=== PATIENT | male | born 1975 | race Caucasian/White ===

== ENCOUNTER 2017-09-23 19:34 | Emergency (ER) | payer OTHER ==
[~2017-09-23] VITALS: Ht 175.3 cm; Wt 99.8 kg
[~2017-09-23 19:34] MED LIST: AZIT250T6 PO
[2017-09-23 19:35] VITALS: BP 123/77
--- NOTE | 2017-09-23 19:59 | PHYS DOC ---
Past History Past Medical History: Anxiety Past Surgical History: No Surgical History Alcohol Use: Heavy Drug Use: None Adult General Chief Complaint Chief Complaint: FOREIGN BODY HPI HPI Patient is a 42 year old M who presents with swollen uvula. Patient states he can feel his uvula touching the back of his tongue when he swallows and it bothers him. Patient denies any pain with swallowing. Patient states he's been sick for the past 3 weeks with URI symptoms and sinus congestion and drainage. Patient states he was seen as PCPs office yesterday however was not seen by a physician since they were all gone and the nurses supposedly swabbed him for what he thinks was strep which was negative. Patient denies any fevers. Patient denies any chest pain returns of breath. Patient is no other complaints. Review of Systems Review of Systems GEN: Denies fevers, chills, sweats HEENT: Swollen uvula CV: Denies chest pain RESP: Denies shortness of air, cough GI: Denies n/v/d NEURO: Denies confusion, dizziness MSK: Denies weakness, joint pain/swelling All other systems were reviewed and found to be within normal limits, except as documented in this note. Allergies Allergies Allergies Coded Allergies Type Severity Reaction Last Updated Verified No Known Drug Allergies 06/13/16 No Physical Exam Physical Exam GEN.: No apparent distress. Alert and oriented. HEENT: Head is normocephalic, atraumatic, uvula erythematous minimally swollen, posterior pharynx erythema no tonsillar swelling, TMs clear bilaterally NECK: Supple, no cervical lymphadenopathy, no meningeal signs LUNGS: CTAB. HEART: RRR, S1, S2 present. Peripheral pulses intact ABDOMEN: Soft, nontender. Positive bowel sounds. EXTREMITIES: Without any cyanosis. NEUROLOGIC: Normal speech, normal tone PSYCHIATRIC: Normal affect, normal mood. SKIN: No ulcerations Current Patient Data Lab Results Rapid strep positive EKG EKG [] Radiology/Procedures Radiology/Procedures [] Course & Med Decision Making Course & Med Decision Making Pertinent Labs and Imaging studies reviewed. (See chart for details) ED course: Patient was seen and examined emergency room a rapid strep, rapid influenza swabs are taken Was positive for rapid strep Informed patient of strep results and plan to discharge home with antibiotics. Patient states a couple weeks ago he was on a Z-Miguel for URI symptoms therefore will some amoxicillin. Recommended short-term follow-up as PCP. MDM: After reviewing the chart, CC/HPI/PMH, physical exam, [lab results], I do not believe the patient has a severe bacterial infection warranting further workup and/or admission at this time. Patient has strep throat that we treated with oral antibiotics as an outpatient with short-term follow-up with PCP. Patient is stable for discharge. Additional verbal discharge instructions were provided to the patient and that if symptoms get worse or any new symptoms arise that are worrisome to the patient he is to return to the emergency room immediately [] Dragon Disclaimer Dragon Disclaimer This electronic medical record was generated, in whole or in part, using a voice recognition dictation system. Departure Departure: Impression: Primary Impression: Strep pharyngitis Disposition: 01 HOME, SELF-CARE Condition: IMPROVED Referrals: PCP,CRISELDA (PCP) Patient Instructions: Strep Throat Additional Instructions: Please follow-up with your family doctor the next one to 2 days and return if symptoms increase. Scripts Amoxicillin (AMOXICILLIN) 875 Mg Tablet 1 TAB PO BID, #14 TAB Prov: DAVID DRAPER DO 09/23/17 DAVID DRAPER DO Sep 23, 2017 19:59
[2017-09-23] MEDS ORDERED: DEXAMETHASONE SOD PHOS 10 MG/ML VIAL IM ONE (20:30)
[2017-09-23] MEDS ORDERED: AMOX875T PO (20:38)
[2017-09-23 20:41] LABS: INFLUENZA A PATIENT NEGATIVE (NEGATIVE); INFLUENZA B PATIENT NEGATIVE (NEGATIVE)
== END 2017-09-23 20:40 | disposition home or self-care (01) ==
LOC: ER 19:34
DX: J02.0 Streptococcal pharyngitis (principal); F10.20 Alcohol dependence, uncomplicated; F41.9 Anxiety disorder, unspecified
CPT/HCPCS: 87804; 87880; 96372; 99284; J1100

== ENCOUNTER 2018-05-02 16:17 | Emergency (ER) | payer OTHER ==
[~2018-05-02 16:17] MED LIST changes: +AMOX875T PO
[2018-05-02 16:30] VITALS: BP 116/77
--- NOTE | 2018-05-02 16:50 | PHYS DOC ---
Past History Past Medical History: Anxiety, Hypertension Past Surgical History: No Surgical History Alcohol Use: Occasionally Drug Use: None Adult General Chief Complaint Chief Complaint: DENTAL PROBLEM HPI HPI 6-year-old male presents with left lower quadrant tooth pain. The patient has known wisdom teeth that are impacted, growing in sideways. He has fillings that have fallen out and believes cavities are expanding in the same area. He is anxious about going to the dentist and have everything fixed. 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 The pain was significant enough today that he had to leave work. Patient denies fever or chills. He is concern for infection as his gums are sensitive and feel like they are somewhat swollen. He has no other complaints. Review of Systems Review of Systems Constitutional: Denies fever or chills [] Eyes: Denies change in visual acuity, redness, or eye pain [] HENT: Denies nasal congestion or sore throat. Toothache [] Respiratory: Denies cough or shortness of breath [] Cardiovascular: No additional information not addressed in HPI [] GI: Denies abdominal pain, nausea, vomiting, bloody stools or diarrhea [] : Denies dysuria or hematuria [] Musculoskeletal: Denies back pain or joint pain [] Integument: Denies rash or skin lesions [] Neurologic: Denies headache, focal weakness or sensory changes [] Endocrine: Denies polyuria or polydipsia [] All other systems were reviewed and found to be within normal limits, except as documented in this note. Allergies Allergies Allergies Coded Allergies Type Severity Reaction Last Updated Verified No Known Drug Allergies 06/13/16 No Physical Exam Physical Exam Constitutional: Well developed, well nourished, no acute distress, non-toxic appearance. [] HENT: Normocephalic, atraumatic, bilateral external ears normal, oropharynx moist, no oral exudates, nose normal. Wasn't tooth in the left lower quadrant growing and sideways. Molar next to it with cavities. Some erythema of the surrounding gum tissue.[] Eyes: PERRLA, EOMI, conjunctiva normal, no discharge. [] Neck: Normal range of motion, no tenderness, supple, no stridor. [] Cardiovascular:Heart rate regular rhythm, no murmur [] Lungs & Thorax: Bilateral breath sounds clear to auscultation [] Abdomen: Bowel sounds normal, soft, no tenderness, no masses, no pulsatile masses. [] Skin: Warm, dry, no erythema, no rash. [] Back: No tenderness, no CVA tenderness. [] Extremities: No tenderness, no cyanosis, no clubbing, ROM intact, no edema. [] Neurologic: Alert and oriented X 3, normal motor function, normal sensory function, no focal deficits noted. [] Psychologic: Affect normal, judgement normal, mood normal. [] Current Patient Data Vital Signs Vital Signs Date Time Temp Pulse Resp B/P (MAP) Pulse Ox O2 Delivery O2 Flow Rate FiO2 05/02/18 16:30 97.9 82 18 100 Room Air EKG EKG [] Radiology/Procedures Radiology/Procedures [] Course & Med Decision Making Course & Med Decision Making Pertinent Labs and Imaging studies reviewed. (See chart for details) The patient is concerned about taking too strong with pain medication because he cannot be drowsy at work. He has taken Percocet in the past for broken arm and this made him very drowsy. He does not member the dosage. I will discharge him with Augmentin for possible infection as well as naproxen 500 and [place] 5/ 325. The patient will try 1/2-1 tab of [place] at home to see how it makes him feel. He is stable for discharge at this time. [] Dragon Disclaimer Dragon Disclaimer This electronic medical record was generated, in whole or in part, using a voice recognition dictation system. Departure Departure: Referrals: SERA GLEZ MD (PCP) KRISTIE ARAUJO DO May 02, 2018 16:50
[2018-05-02] MEDS ORDERED: HYDR-971 PO (16:53)
[2018-05-02] MEDS ORDERED: AMOX1TAB61 PO (16:53)
[2018-05-02] MEDS ORDERED: NAPR-514 PO (16:53)
== END 2018-05-02 17:23 | disposition home or self-care (01) ==
LOC: ER 16:17
DX: K02.9 Dental caries, unspecified (principal); I10 Essential (primary) hypertension
CPT/HCPCS: 99283

== ENCOUNTER → 2018-10-25 | Outpatient (CLI) | payer OTHER ==
[~2018-10-25] MED LIST changes: +AMOX1TAB61 PO; +HYDR-3165 PO; +NAPR-514 PO
== END | disposition home or self-care (01) ==
LOC: PMG 18:20
PROVIDERS: ATTEND Registered Nurse
DX: M79.675 Pain in left toe(s) (principal)
CPT/HCPCS: 36415; 84550

== ENCOUNTER 2019-01-26 17:43 | Emergency (ER) | payer OTHER ==
[~2019-01-26] VITALS: Ht 175.3 cm; Wt 102.1 kg
[2019-01-26] MEDS ORDERED: ORPH-16 PO (18:52)
[2019-01-26] MEDS ORDERED: PRED20TA PO (18:52)
--- NOTE | 2019-01-26 18:52 | PHYS DOC ---
Past History Past Medical History: Anxiety, Hypertension Past Surgical History: No Surgical History Alcohol Use: Heavy Drug Use: None Adult General Chief Complaint Chief Complaint: HIP PAIN HPI HPI Patient is a 43 year old male who presents with low back pain that radiated down his left leg at approximately 2 PM today. He states the pain began suddenly around 11 AM this morning while he was at a job interview and sitting on a hard chair. He states the pain is a dull ache with intermittent sharp pains down his leg. The pain is currently a 5 out of 10 in severity. He took one Naproxen at 2 PM that has provided mild relief. He admits recently beginning a new exercise program which he believes has led to his increased back pain. The pain is worse with any twisting movement. He denies any incontinence, urinary retention, hematuria, or decreased sensation in his lower extremities. Review of Systems Review of Systems Constitutional: Denies fever or chills [] Eyes: Denies change in visual acuity, redness, or eye pain [] Respiratory: Denies cough or shortness of breath [] Cardiovascular: Denies chest pain or palpitations. GI: Denies abdominal pain, nausea, vomiting, or diarrhea [] : Denies dysuria or hematuria [] Musculoskeletal: Reports lower back pain. Neurologic: Denies headache, focal weakness or sensory changes [] Complete systems were reviewed and found to be within normal limits, except as documented in this note. Current Medications Current Medications Current Medications Medications (Trade) Dose Ordered Sig/Dinh Start Time Stop Time Status Last Admin Dose Admin Dexamethasone (Decadron) 10 mg 1X ONCE 01/26/19 19:00 01/26/19 19:01 Allergies Allergies Allergies Coded Allergies Type Severity Reaction Last Updated Verified No Known Drug Allergies 06/13/16 No Physical Exam Physical Exam Constitutional: Well developed, well nourished, no acute distress, non-toxic appearance. [] Eyes: EOMI, conjunctiva normal, no discharge. [] Cardiovascular:Heart rate regular rhythm, no murmur [] Lungs & Thorax: Bilateral breath sounds clear to auscultation [] Skin: Warm, dry, no erythema, no rash. [] Back: Tenderness to palpation over left SI joint and quadratus lumborum, no midline thoracic or lumbar tenderness noted, no CVA tenderness. [] Extremities: No tenderness, no cyanosis, no clubbing, ROM intact, no edema. [] Neurologic: Alert and oriented X 3, normal motor function, normal sensory function, no focal deficits noted. [] Psychologic: Affect normal, judgement normal, mood normal. [] Current Patient Data Vital Signs Vital Signs Date Time Temp Pulse Resp B/P (MAP) Pulse Ox O2 Delivery O2 Flow Rate FiO2 01/26/19 18:02 98.0 91 18 95 Room Air EKG EKG [] Radiology/Procedures Radiology/Procedures [] Course & Med Decision Making Course & Med Decision Making Mr. Rutledge is a 43-year-old male who presented with left lower back pain that began this morning and has radiated down his left leg one time. He denies any trauma or injuries to the area. Denies loss of bowel/bladder. Denies fever. Denies dysuria or hematuria. No midline spinal tenderness noted. Patient was provided steroids to decrease inflammation, Stretching/Rehab exercises, and provided contact information for follow up with Dr. Thompson. Patient was given a prescription for Norflex as well. Patient stable for discharge with outpatient follow-up with PCP. Discussed findings and plan with patient and family, who acknowledge understanding and agreement. Dragon Disclaimer Dragon Disclaimer This electronic medical record was generated, in whole or in part, using a voice recognition dictation system. Departure Departure: Impression: Primary Impression: Lumbar back pain Additional Impression: Sciatica Disposition: 01 HOME, SELF-CARE Condition: STABLE Referrals: SERA GLEZ MD (PCP) Patient Instructions: Back Pain, Adult, [id number], Sciatica with Rehab-Sp ortsMed Scripts Orphenadrine Citrate (ORPHENADRINE CITRATE) 100 Mg Tablet.er 1 TAB PO BID PRN for MUSCLE PAIN, #14 TAB 0 Refills Prov: HETAL COX DO 01/26/19 Prednisone (PREDNISONE) 20 Mg Tablet 2 TAB PO DAILY for Back pain, #8 TAB Prov: HETAL COX DO 01/26/19 Problem Qualifiers Additional Impression: Sciatica Laterality: left Qualified Codes: M54.32 - Sciatica, left side HETAL COX DO Jan 26, 2019 18:52
[2019-01-26] MEDS ORDERED: DEXAMETHASONE 4 MG TABLET PO ONE (19:00)
[2019-01-26 19:06] VITALS: BP 143/65
== END 2019-01-26 19:06 | disposition home or self-care (01) ==
LOC: ER 17:43
DX: M54.42 Lumbago with sciatica, left side (principal); F41.9 Anxiety disorder, unspecified; I10 Essential (primary) hypertension; F10.20 Alcohol dependence, uncomplicated; Y90.9 Presence of alcohol in blood, level not specified
CPT/HCPCS: 99283; J8540

== ENCOUNTER → 2019-02-14 | Outpatient (CLI) | payer OTHER ==
[2019-01-26 19:06] VITALS: BP 143/65
[~2019-02-14] MED LIST changes: +ORPH-16 PO; +PRED20TA PO
--- NOTE | 2019-02-14 16:29 | RAD ---
Examination: CT of the abdomen pelvis without contrast HISTORY: History of left flank pain, left lower quadrant pain COMPARISON: None available TECHNIQUE: Axial CT images of the abdomen pelvis were performed without contrast. Coronal and sagittal reformats are performed Exposure: One or more of the following individualized dose reduction techniques were utilized for this examination: 1. Automated exposure control 2. Adjustment of the mA and/or kV according to patient size 3. Use of iterative reconstruction technique FINDINGS: The bibasilar lungs are clear. No evidence of free air identified in the abdomen. The evaluation of the solid organs is limited due to lack of IV contrast. The evaluation of bowel is limited due to lack of oral contrast. There is diffuse decreased attenuation noted in the liver likely hepatic steatosis. There is ill-defined density identified in the left lobe of the liver probably focal fatty sparing. The visualized spleen, adrenals grossly appears unremarkable. Gallbladder is mildly distended. The stomach is mildly distended. The visualized pancreas grossly appears unremarkable. The small bowel is nondilated. Feces and gas noted in the colon. The appendix is normal. There is mild thickened appearance of the urinary bladder wall. Mild prominent bilateral extrarenal pelvis. No evidence of intrarenal collecting system calculi identified. Faint minimal fat stranding identified about the left ureter. No evidence of lytic bony destructive lesion. IMPRESSION: 1. Mild thickened appearance of the wall of the urinary bladder. Underlying mucosal pathology such as neoplasm is not completely excluded. Cystoscopic evaluation can be considered. 2. Minimal faint fat stranding identified about the distal left ureter, nonspecific underlying mild pyelitis is not excluded. Correlate with urine analysis. 3. Hepatic steatosis.There is ill-defined density identified in the left lobe of the liver probably focal fatty sparing. Electronically signed by: Igor Peguero MD (02/14/2019 4:26 PM) [facility]
== END | disposition home or self-care (01) ==
LOC: CT 15:48
PROVIDERS: ATTEND Family Medicine
DX: K76.0 Fatty (change of) liver, not elsewhere classified (principal); K82.8 Other specified diseases of gallbladder; K31.89 Other diseases of stomach and duodenum
CPT/HCPCS: 74176

== ENCOUNTER → 2019-05-02 | Outpatient (CLI) | payer OTHER | END | disposition home or self-care (01) | LOC: LAB 14:59 | PROVIDERS: ATTEND Family Medicine | DX: E79.0 Hyperuricemia without signs of inflammatory arthritis and tophaceous disease (principal) | CPT/HCPCS: 36415; 84550 ==

== ENCOUNTER → 2020-11-27 | Outpatient (CLI) | payer OTHER | LOC: RAD 15:50 | PROVIDERS: ATTEND Nurse Practitioner Family | DX: S29.9XXA Unspecified injury of thorax, initial encounter (principal); W19.XXXA Unspecified fall, initial encounter; Y93.89 Activity, other specified; Y92.89 Other specified places as the place of occurrence of the external cause; Y99.8 Other external cause status | CPT/HCPCS: 71101 ==

== ENCOUNTER 2021-08-01 16:41 | Emergency (ER) | payer OTHER ==
--- NOTE | 2021-08-01 16:52 | PHYS DOC ---
Past History Past Medical History: Anxiety, Hypertension (YANNI BARNETT DO) Past Surgical History: No Surgical History (YANNI BARNETT DO) Alcohol Use: Heavy Drug Use: None (YANNI BARNETT DO) Adult General HPI HPI Patient is a 46yo male presenting for right elbow pain. Reports he started skateboarding again 2/2 COVID pandemic. ~48 hours ago he fell while skateboarding in the rain, fell backwards landing on posterior right elbow. Did not hit head, no LOC or blood thinner use. Reports he has had numerous injuries from skateboarding and so, he thought he just bruised his elbow. Has been pr oviding supportive care to self but presents today due to ongoing pain and soft tissue swelling without changes in motor/sensory/neuro function (YANNI BARNETT DO) Review of Systems Review of Systems Fourteen body systems of review of systems have been reviewed. See HPI for pertinent positives and negative responses, other vega all other systems are negative, non-pertinent or non-contributory (YANNI BARNETT DO) Allergies Allergies Allergies Coded Allergies Type Severity Reaction Last Updated Verified No Known Drug Allergies 06/13/16 No (YANNI BARNETT DO) Physical Exam Physical Exam Constitutional: Well developed, well nourished, no acute distress, non-toxic appearance. [] HENT: Normocephalic, atraumatic, bilateral external ears normal, oropharynx moist, no oral exudates, nose normal. [] Eyes: PERRLA, EOMI, conjunctiva normal, no discharge. [] Neck: Normal range of motion, no tenderness, supple, no stridor. [] Cardiovascular:Heart rate regular rhythm, no murmur [] Lungs & Thorax: Bilateral breath sounds clear to auscultation [] Abdomen: Bowel sounds normal, soft, no tenderness, no masses, no pulsatile masses. [] Skin: Warm, dry, no erythema, no rash. [] Back: No tenderness, no CVA tenderness. [] Extremities: No tenderness, no cyanosis, no clubbing, ROM intact, mild edema present to posterior portion of right elbow without issues supinating and/or pronating Neurologic: Alert and oriented X 3, normal motor function, normal sensory function, no focal deficits noted. Median, radial and ulnar nerves of bilateral UEs intact [] Psychologic: Affect normal, judgement normal, mood normal. [] (YANNI BARNETT DO) EKG EKG [] (YANNI BARNETT DO) Radiology/Procedures Radiology/Procedures XR ELBOW COMPLETE_RIGHT 3+ VIEWS History: Right posterior elbow injury. History of humerus fracture. Comparison: None. Technique: 3 views of the right elbow. Findings: Osseous mineralization is normal. No acute fracture or dislocaton. Triceps insertion enthesophyte. Irregular cortical thickening of the distal humeral diaphysis consistent with healed fracture. No elbow effusion. There is soft tissue swelling overlying the olecranon process. Impression: 1. Soft tissue swelling overlying the olecranon without acute osseous abnormality of the right elbow. Electronically signed by: Miguel A Godfrey MD (08/01/2021 6:31 PM) [facility] (YANNI BARNETT DO) Heart Score C/O Chest Pain: No Risk Factors: Risk Factors: DM, Current or recent (<one month) smoker, HTN, HLP, family history of CAD, obesity. Risk Scores: Risk Factors: DM, Current or recent (<one month) smoker, HTN, HLP, family histo ry of CAD, obesity. (YANNI BARNETT DO) Course & Med Decision Making Course & Med Decision Making ABCs unremarkable. HPI PE and ER workup non-concerning Radiograph of elbow obtained and viewed by myself as non-concerning. Signout given to oncoming physician regarding likely plan of care to be ongoing supportive practices and close PCP follow-up (YANNI BARNETT DO) Course & Med Decision Making Patient care handed off at checkout pending elbow x-ray. Elbow x-ray with no new acute osseous abnormality and some mild soft tissue swelling. Discussed findings with patient. Discussed symptom management at home. Advised to follow-up with his primary care as needed. Gave return precautions to the ED. Patient grateful, verbalized understanding and agreed with plan of discharge. (JOSE MANUEL HOOK MD) Dragon Disclaimer Dragon Disclaimer This electronic medical record was generated, in whole or in part, using a voice recognition dictation system. (YANNI BARNETT DO) Departure Departure: Impression: Primary Impression: Right elbow pain Disposition: HOME / SELF CARE / HOMELESS Condition: STABLE Referrals: SERA GLEZ MD (PCP) Patient Instructions: RICE - Routine Care for Injuries Additional Instructions: You were seen for right elbow pain. Your pain is most likely due to a contusion or deep bone bruise and should improve with ibuprofen and/or Tylenol for pain, ice, stretching, and activity. If it does not improve you should follow up with a primary care doctor. You should return to the ED if you develop worsening pain, fever, numbness, tingling, weakness, or any other new or concerning sy mptoms. YANNI BARNETT DO Aug 01, 2021 16:52 JOSE MANUEL HOOK MD Aug 01, 2021 18:44
[2021-08-01] MEDS ORDERED: IBUPROFEN 600 MG TABLET. PO ONE (17:15)
[2021-08-01] MEDS ORDERED: ACETAMINOPHEN 500 MG TABLET PO ONE (17:15)
--- NOTE | 2021-08-01 18:34 | RAD ---
XR ELBOW COMPLETE_RIGHT 3+ VIEWS History: Right posterior elbow injury. History of humerus fracture. Comparison: None. Technique: 3 views of the right elbow. Findings: Osseous mineralization is normal. No acute fracture or dislocaton. Triceps insertion enthesophyte. Ir regular cortical thickening of the distal humeral diaphysis consistent with healed fracture. No elbow effusion. There is soft tissue swelling overlying the olecranon process. Impression: 1. Soft tissue swelling overlying the olecranon without acute osseous abnormality of the right elbow . Electronically signed by: Miguel A Godfrey MD (08/01/2021 6:31 PM) [facility]
== END 2021-08-01 18:45 | disposition home or self-care (01) ==
LOC: ER 16:41
DX: M25.521 Pain in right elbow (principal); R22.31 Localized swelling, mass and lump, right upper limb; F41.9 Anxiety disorder, unspecified; I10 Essential (primary) hypertension; F10.20 Alcohol dependence, uncomplicated; Y90.9 Presence of alcohol in blood, level not specified
CPT/HCPCS: 73080; 99283